=== PATIENT | female | born 1985 | race Two or more races ===

== ENCOUNTER → 2017-07-31 | Emergency (ER) | payer OTHER ==
[~2017-07-31] VITALS: Ht 154.9 cm; Wt 136.1 kg
[~2017-07-31] MED LIST: FLONASE ALLERG9.9 ML NASAL; KETOROLAC TROME10 MG PO; ZITHROMAX TRI-500 MG PO
== END | disposition home or self-care (01) ==
LOC: ER 21:17
DX: J32.8 Other chronic sinusitis (principal)

== ENCOUNTER 2017-08-08 12:08 | Emergency (ER) | payer OTHER ==
[~2017-08-08] VITALS: Ht 154.9 cm; Wt 115.2 kg
== END 2017-08-08 18:55 | disposition home or self-care (01) ==
LOC: ER 12:08
DX: M54.5 Low back pain (principal)